=== PATIENT | female | born 1985 | race Caucasian/White ===

== ENCOUNTER 2018-11-26 10:28 | Outpatient (REF) | payer BC, SELFPAY ==
[2018-11-28 09:37] LABS: HIV-1/2 Ag & Ab Screen Negative (NEGAT)
[2018-11-30 15:16] LABS: Chlamydia Result Negative; GC Result Negative; Specimen Description VAGINAL
== END 2018-11-26 10:48 ==
LOC: NCHCN 10:28
PROVIDERS: PCP Family Medicine; Visit Provider Family Medicine
DX: Z00.00 Encounter for general adult medical examination without abnormal findings (principal); Z11.3 Encounter for screening for infections with a predominantly sexual mode of transmission; Z11.4 Encounter for screening for human immunodeficiency virus [HIV]
CPT/HCPCS: 87389; 87491; 87591